=== PATIENT | female | born 1970 | race Caucasian/White ===

== ENCOUNTER 2025-08-22 05:00 | Observation (INO) | payer MEDICAID, SELFPAY ==
[2025-08-22] VITALS (22 sets, daily range): BP systolic 92–147; BP diastolic 49–98; PULSE 52–167; RESP 13–99; TEMP 36.3–36.8; O2SAT 94–99; BMI 41.5
--- NOTE | 2025-08-22 05:10 | EKG_ITS ---
[facility] Test Date: 2025-08-22 Pat Name: JENNIFER CHIN Department: Room: - Gender: Female Magnetic Locater: : 1970 Requested By: ED Temporary Provider Order Number: [id number] Reading MD: ED Temporary Provider Measurements Intervals [place] Rate: 67 P: 43 [place]: 139 QRS: -20 QRSD: 89 T: 29 QT: 373 QTc: 396 Interpretive Statements SINUS RHYTHM LOW QRS VOLTAGE IN PRECORDIAL LEADS [QRS DEFLECTION < 1.0 mV IN CHEST LEADS] Compared to ECG 11/03/2022 04:03:10 Low QRS voltage now present Myocardial infarct finding no longer present /store/S0/[id number]/ecg/[id number].pdf
--- NOTE | 2025-08-22 05:22 | PD.EDRME ---
Rapid Medical Screening Exam RME Arrival date/time: 08/22/25 05:00 Chief Complaint: Arrhythmia/Palpitations Vital signs: Vital Signs Temperature 98.3 F 08/22/25 05:03 Pulse Rate 121 H 08/22/25 05:03 Respiratory Rate 19 08/22/25 05:03 Blood Pressure 147/85 H 08/22/25 05:03 Pulse Oximetry (%) 98 08/22/25 05:03 Oxygen Delivery Method Room Air 08/22/25 05:03 RME Narrative: 55yo female with a history of intermittent palpitations and underlying CAD s/p [place] with [address], on Plavix and Aspirin presenting with sudden onset palpitations at 0330. No chest pain. Reports mild lightheadedness, but no syncope. Exam: Rapid irregular heart rhythm without signs of CHF Clinical Impression: new onset aFib RVR
--- NOTE | 2025-08-22 05:26 | PC.NURSE ---
MARCO ANTONIO AT BEDSIDE
--- NOTE | 2025-08-22 05:32 | XR_ITS ---
EXAMINATION: AP chest single view TECHNIQUE: AP portable upright chest single view Date and time: August 22, 2025, 0600 hours, comparison November 19, 2021 INDICATIONS: Cardiac palpitations today. FINDINGS: The film is rotated LPO Mild enlargement left ventricle Mild to moderate vascular congestion No lobar pneumonia Moderate osteopenia IMPRESSION: Mild enlargement left ventricle Mild to moderate vascular congestion
[2025-08-22] MEDS: DILTIAZEM INJ 5 MG/ML VIAL 5 ML 10 MG IV ×2 (05:36→05:51)
--- NOTE | 2025-08-22 05:43 | PC.NURSE ---
PER PROVIDER TO GIVE FIRST DOSE OF 10MG OF DILTIAZEM TO MET GOAL OF 110BPM OR LESS/ IF HEART RATE DOES NOT DECREASE GIVE A SECOND DOSE OF DILTIAZEM 10MG IVP 15 MIN APART
[2025-08-22 05:53] LABS: Collection Type, Urine Clean Catch; WBC,Urine 0 /hpf (0-5)
[2025-08-22 05:55] LABS: Basophils # (Auto) 0.0 Thou/mm3 (0.0-0.2); Basophils % (Auto) 1 % (0-2.5); Eosinophils # (Auto) 0.4 Thou/mm3 (0.0-0.5); Eosinophils % (Auto) 6 % (0-10); Hematocrit 46.4 % (36.0-46.0); Hemoglobin 15.4 g/dL (12.0-16.0); Immature Granulocytes Auto 0.01 Thou/mm3 (0.00-0.00); Lymphocytes # (Auto) 1.9 Thou/mm3 (1.0-4.8); Lymphocytes % (Auto) 32 % (10-50); Mean Corpuscular HGB Conc 33.2 g/dl (31.0-37.0); Mean Corpuscular Hemoglobin 29.8 pg (25.0-35.0); Mean Corpuscular Volume 90 fL (80-100); Monocytes # (Auto) 0.4 Thou/mm3 (0.0-0.8); Monocytes % (Auto) 7 % (0-12); Neutrophils # (Auto) 3.3 Thou/mm3 (1.8-7.7); Neutrophils % (Auto) 54 % (37-80); Nucleated Red Blood Cell # 0.00 Thou/mm3 (0.00-0.00); Nucleated Red Blood Cell % 0 /100 WBC (0); Platelet Count 230 Thou/mm3 (140-440); RDW Standard Deviation 56.8 fL (36.4-46.3); Red Blood Count 5.17 Miln/mm3 (4.00-5.20); White Blood Count 6.1 Thou/mm3 (3.6-11.0)
[2025-08-22 06:06] LABS: Bacteria,Urine Rare; Bilirubin,Urine Negative (Negative); Blood,Urine Negative (Negative); Clarity,Urine Clear (Clear/Hazy); Color,Urine Colorless (Lt Yel-Yel); Culture Indicated,Urine Not Indicated; Glucose, Urine 3+ (Negative); Ketones,Urine Negative (Negative); Leukocyte Esterase,Urine Negative (Negative); Nitrite,Urine Negative (Negative); PH,Urine 7.0 (5.0-7.0); Protein,Urine Negative (Neg - Trace); RBC,Urine < 1 /hpf (0-3); Specific Gravity,Urine 1.004 (1.001-1.035); Squamous Epithelial Cell,Urine < 1 /hpf (0-5); Urobilinogen,Urine Negative mg/dL (0.0-1.0)
[2025-08-22 06:08] LABS: Amphetamine/Methamp Scrn,U Negative (Negative); Barbiturate Screen,Urine Negative (Negative); Benzodiazepines Screen,Urine Negative (Negative); Benzoylecgonine Screen, Ur Negative (Negative); Fentanyl Screen,Urine Negative (Negative); Opiate Screen,Urine Negative (Negative); THC Screen,Urine Negative (Negative)
[2025-08-22 06:17] LABS: INR 1.0 (0.9-1.3); Partial Thromboplastin Time 25.8 Seconds (22.0-36.0); Prothrombin Time 10.4 Seconds (9.0-12.2)
[2025-08-22 06:22] LABS: Alanine Aminotransferase 13 U/L (10-49); Albumin, Serum 4.9 gm/dL (3.5-5.0); Albumin/Globulin Ratio 2.0 (1.2-2.2); Alkaline Phosphatase 111 U/L (46-116); Anion Gap 9 (7-16); Aspartate Amino Transferase 20 U/L (0-34); BUN/Creatinine Ratio 11 Ratio (12-20); Bilirubin,Total 0.5 mg/dL (0.3-1.2); Blood Urea Nitrogen 11 mg/dL (9-23); Calcium 10.1 mg/dL (8.3-10.6); Calcium (Corrected) 10.1 mg/dL (8.5-10.1); Carbon Dioxide 25.8 mMol/L (20.0-31.0); Chloride 106 mMol/L (98-107); Creatinine (Component) 1.0 mg/dL (0.6-1.3); Estimated Creatinine Clearance 88.2 mL/min (>60); Globulin 2.4 gm/dL (2.3-3.5); Glucose 140 mg/dL (74-106); LDH (Lactate Dehydrogenase) 236 U/L (120-246); Magnesium 1.8 mg/dL (1.6-2.6); Osmolality,Calculated 282 (275-295); Potassium 3.4 mMol/L (3.4-5.1); Sodium 141 mMol/L (136-145); Total Protein 7.3 gm/dL (5.7-8.2); Troponin I 0.028 ng/mL (0.0-0.045); eGFR > 60 See Note
[2025-08-22 06:26] LABS: B-Type Natriuretic Peptide < 20 pg/mL (0-100)
--- NOTE | 2025-08-22 06:33 | EDNOTE_ITS ---
<Statement entered by Vijaya Price MD - 08/22/25 16:25> As co-signing physician, I was present and available for consult prn. I concur with the plan and care as documented by the midlevel provider. ED Arrhythmia Palp. RME/HPI General Chief Complaint: Arrhythmia/Palpitations Stated Complaint: PALPITATIONS Time Seen by Provider: 08/22/25 06:46 Arrival date/time: 08/22/25 05:00 RME / HPI RME / HPI narrative: 55yo female with a history of intermittent palpitations and underlying CAD s/p [place] with [address], on Plavix and Aspirin presenting with sudden onset palpitations at 0330. No chest pain. Reports mild lightheadedness, but no syncope. Dr. Price?s Main ED Evaluation: 55yo female with a history of DM, HTN, CAD, widowmaker heart attack 03/23/2022 s/p 3 cardiac stents, on Plavix and Aspirin BIBA from home presents to the ED for a chief complaint of palpitations x 0330. Patient denies any chest pain, shortness of breath, or any other associated symptoms. Patient has been compliant with her medications. Cross Country/Track And Field Coach is Dr. Juarez. Related Data Home Medications ?Medication ?Instructions ?Recorded ?Confirmed Hydrocodone Bit/Acetaminophen 1 tab PO [id number] PRN TANVIR N ##0 10/09/13 08/22/25 ([place] 10-325 Tablet) lisinopril 10 mg tablet 10 mg PO QAM High Blood Pres sure 10/09/13 08/22/25 ##0 aspirin 81 mg chewable tablet 1 tab PO DAILY 08/22/25 08/22/25 atorvastatin 80 mg tablet 80 mg PO HS 08/22/25 5 carvedilol 6.25 mg tablet 6.25 mg PO .DAILY 08/22/25 1 10/22/24 cholecalciferol (vitamin D3) 125 5,000 unit PO DAILY 1 10/22/24 08/22/25 mcg (5,000 unit) capsule clopidogrel 75 mg tablet 75 mg PO DAILY 08/22/2508/12 empagliflozin 10 mg tablet 10 mg PO QDAY 08/22/2508/12 (Jardiance) hydrochlorothiazide 50 mg tablet 50 mg PO DAILY 08/22/25 omeprazole 20 mg tablet,delayed 20 mg PO DAILY 5 08/22/25 release Previous Rx's ?Medication ?Instructions ?Recorded diphenhydramine HCl 25 mg tablet 25 mg PO [id number] PRN ITCHING #60 10/09/13 (Benadryl Allergy) tabs Allergies Allergy/AdvReac Type Severity Reaction Status Date / Time amoxicillin Allergy Severe vomiting Verified 08/22/25 05:09 and swelling codeine Allergy Intermediate VOMITING Verified 08/22/25 05:09 Penicillins Allergy Verified 08/22/25 05:09 Review of Systems Review of Systems Systems Reviewed: All systems reviewed, normal except as documented Past Medical History Past Medical History NEUROLOGIC: Negative Neurological Disorders CARDIAC: Positive Myocardial Infarction (2021) and Hypertension; Negative Cardiac Disorders or Congestive Heart Failure RESPIRATORY: Negative Chronic Obstructive Pulmonary Disease (COPD) GASTROINTESTINAL: Negative Gastrointestinal Disorders GENITOURINARY: Negative Genitourinary Disorders or Renal Disease MUSCULOSKELETAL: Negative Musculoskeletal Disorders ENDOCRINE: Positive Diabetes Mellitus Type 2; Negative Endocrine Disorders or Diabetes Mellitus Type 1 OTHER HISTORY: Negative Hospitalization Surgical History SURGICAL: Positive Cardiac Surgery, Coronary Stent and Tubal Ligation Social History SMOKING STATUS: Light (< 1 pack/day) ED Exam Narrative Physical exam: GENERAL APPEARANCE: alert and oriented x 4, well-developed, well-nourished, no acute distress VITALS: All vitals were reviewed and the pulse ox is 94% on room air, which is normal according to my interpretation. HEENT: Normocephalic, atraumatic; pupils equal, round, reactive to light; EOMI; mucous membranes pink, moist; oropharynx clear NECK: Supple LUNGS: CTABL; no wheezes, no rales, no rhonchi HEART: Tachycardic, irregularly irregular rhythm; normal S1, S2; no murmurs ABDOMEN: non distended; normal BS; soft, no tenderness, no guarding, no rebound; no masses, no organomegaly, no hernia BACK: no CVA tenderness EXTREMITIES: atraumatic; no edema NEUROLOGIC: awake; alert and oriented x4; cranial nerves II-XII grossly intact; no focal sensory or motor deficits PSYCHIATRIC: appropriate mood and affect SKIN: warm, dry, normal color; no rashes Course Course Course Narrative: CXR is ordered for determining the etiology of palpitations. Quality Measures none Orders Category Date Time Status EKG (ED ONLY) *Do not use* NOW Care 08/22/25 05:10 Completed Insert IV NOW Care 08/22/25 05:22 Active EKG (ED Only) Stat Exams 08/22/25 05:10 Ordered XR chest 1V portable Stat Exams 08/22/25 05:32 Taken B-Type Natriuretic Peptide Stat Lab 08/22/25 05:30 Completed CBC Stat Lab 08/22/25 05:30 Completed Comprehensive Metabolic Panel Stat Lab 08/22/25 05:30 Completed Drug Screen,Urine Stat Lab 08/22/25 05:29 Completed LDH (Lactate Dehydrogenase) Stat Lab 08/22/25 05:30 Completed Magnesium Stat Lab 08/22/25 05:30 Completed Partial Thromboplastin Time Stat Lab 08/22/25 05:30 Completed Prothrombin Time with INR Stat Lab 08/22/25 05:30 Completed Troponin I Stat Lab 08/22/25 05:30 Completed Urinalysis, C/S if Indicated Stat Lab 08/22/25 05:29 Completed Diltiazem Inj [Cardizem Inj] Med 08/22/25 05:33 Discontinued 10 mg IV X1 ONE Diltiazem Inj [Cardizem Inj] Med 08/22/25 05:36 Discontinued 10 mg IV X1 ONE Reevaluation(s) Reevaluation #1: Patient continues to be in aFib with a rate between the 130s-140s. Additional dose of labetalol ordered. Time: 08:11 Reevaluation #2: Patient received Diltiazem 10mg IVP x2 by previous physician. Rate was not c ontrolled and given an additional Diltizem 15mg IVP, Diltiazem gtt, Labetolol, 10mg IVP, IVF, Labetalol 20mg IVP. Rate at this time 150s. Will consult with cardiology. Time: 10:48 Reevaluation #3: Heart rate improved, now 65 on telemetry. Time: 11:10 Vital Signs Vital signs: Vital Signs Temperature 98.3 F 08/22/25 05:03 Pulse Rate 121 H 08/22/25 05:03 Respiratory Rate 19 08/22/25 05:03 Blood Pressure 147/85 H 08/22/25 05:03 Pulse Oximetry (%) 98 08/22/25 05:03 Oxygen Delivery Method Room Air 08/22/25 05:03 Arrhythmia/Palpitations MDM Narrative MDM Narrative:: Scribe Attestation: 08/22/25 - Claribel Alfonso am scribing for and in the presence of Dr. Price. Kaden, Awilda Jimenez, aisha scribing for and in the presence of Dr. Price. Patient data External records reviewed:: [facility] previous records (Per chart review, patient was seen here on 11/03/22 for noncardiac chest pain. No documented history of atrial fibrillation. EKG on 10/2022 was sinus tachycardia. ) and EMS form Clinical information provided by:: patient Social determinants that could affect healthcare access:: none Patient has the following chronic illnesses:: DM, HTN, CAD s/p [place] with 2 stents placed How is presenting disease/condition affected by chronic disease/condition?: uneffected by Evaluation data The following diagnostics were reviewed and interpreted by me:: lab results, radiology exam(s) and EKG tracing(s) Lab and/or radiology exams considered but not ordered:: none Interpretation Summary: EKG done at 0521, aFib RVR, rate of 169, low voltage throughout, Q wave in V1 and V2, poor R wave progression, according to my interpretation. Ordering Physician: Trev Maxwell DO Date of Service: 08/22/25 Procedure(s): XR chest 1V portable Accession Number(s): [id number] cc: Phillip Gonzalez; Trev Maxwell DO; John Herman MD~ EXAMINATION: AP chest single view TECHNIQUE: AP portable upright chest single view Date and time: August 22, 2025, 0600 hours, comparison November 19, 2021 INDICATIONS: Cardiac palpitations today. FINDINGS: The film is rotated LPO Mild enlargement left ventricle Mild to moderate vascular congestion No lobar pneumonia Moderate osteopenia IMPRESSION: Mild enlargement left ventricle Mild to moderate vascular congestion Dictated By: John Herman MD Signed By: <Electronically signed by John Herman MD in OV> 08/22/25 0808 Medications / Prescriptions Medications or Prescriptions considered but not ordered:: none Medication administrations:: Medication Administration History Discontinued Medications Diltiazem HCl (Diltiazem Inj 5 Mg/Ml Vial 5 Ml) 10 mg IV X1 ONE Stop: 08/22/25 05:34 Last Admin: 08/22/25 05:36 Dose: 10 mg Documented By: PHILL Diltiazem HCl (Diltiazem Inj 5 Mg/Ml Vial 5 Ml) 10 mg IV X1 ONE Stop: 08/22/25 05:37 Last Admin: 08/22/25 05:51 Dose: 10 mg Documented By: PHILL see above Consultations Consultation(s) initiated? (list below): Yes Consultation #1 (Physician, Specialty, Details): I spoke with economic specialist Dr. Saldaña. Discussed patients PMHx, HPI, ED course, exam findings, labs results. He agrees to consult. Time: 10:52 Consultation #2 (Physician, Specialty, Details): I spoke with hospitalist team C. Discussed patients PMHx, HPI, ED course, exam findings, labs, and radiology results. The hospitalist agree to accept the patient for admission. Time: 11:00 Diagnosis Differential diagnosis arrhythmia/palpitations: palpitations, anxiety, sinus tachycardia, artial fibrillation, ventricular premature beats and supraventricular tachycardia Most likely diagnosis given after review of the tests above:: New onset atrial fibrillation with RVR Admission Indicated Admission indicated?: indicated Admission Request Was there a request for admission?: Yes Admission Attestation Admission request attestation: Discussed case with [] from Hospitalist service regarding admission. Discussed patients ED course, exam findings, labs, and radiology results. The Hospitalist [agrees,declines] to accept the patient for admission. Disposition Plan Disposition Plan: Admit Critical Care Time Critical Care Time Critical Care Time: Yes Total Critical Care Time (min.): 35 Attestation: The high probability of sudden, clinically significant deterioration in the patient's condition required the highest level of my preparedness to intervene urgently. The services I provided to this patient were to treat and/or prevent clinically significant deterioration. Services included the following: chart data review, reviewing nursing notes and/or old charts, documentation time, animal nutrition consultant collaboration regarding findings and treatment options, medication orders and management, direct patient care, vital sign assessments and ordering, interpreting and reviewing diagnostic studies and lab tests. Aggregate critical care time includes only time during which I was engaged in work directly related to the patient's care, as described above, whether at bedside or elsewhere in the Emergency Department. It did not include time spent performing other reported procedures or the services of residents, students, nurses or physician assistants. Discharge Plan Plan Patient Disposition: Admit Acute Care w/in Hospital Prescriptions/Referrals Prescriptions/Med Rec: No Action lisinopril 10 MG tablet 10 mg PO QAM Qty: 0 Hydrocodone Bit/Acetaminophen ([place] 10-325 Tablet) 1 TAB tablet 1 tab PO [id number] PRN (Reason: PAIN) Qty: 0 diphenhydramine HCl [Benadryl Allergy] 25 MG tablet 25 mg PO [id number] PRN (Reason: ITCHING) Qty: 60 0RF carvedilol 6.25 mg tablet 6.25 mg PO .DAILY clopidogrel 75 mg tablet 75 mg PO DAILY hydrochlorothiazide 50 mg tablet 50 mg PO DAILY Patient Comments: TAKE 1 TABLET BY MOUTH EVERY DAY IN THE MORNING aspirin 81 mg tablet,chewable 1 tab PO DAILY Patient Comments: CHEW AND SWALLOW 1 TABLET BY MOUTH 1 TIME A DAY cholecalciferol (vitamin D3) 125 mcg (5,000 unit) capsule 5,000 unit PO DAILY Patient Comments: TAKE 1 CAPSULE BY MOUTH DAILY Jardiance 10 mg tablet 10 mg PO QDAY atorvastatin 80 mg tablet 80 mg PO HS Patient Comments: TAKE 1 TABLET BY MOUTH AT BEDTIME omeprazole 20 mg tablet,delayed release (DR/EC) 20 mg PO DAILY Patient Comments: TAKE 1 TABLET BY MOUTH DAILY Referrals: Phillip Gonzalez FNP [Primary Care Provider] - In 1 week Problem List Clinical Impression: New onset a-fib, Atrial fibrillation with RVR Patient/Caregiver Discharge Instructions Print Language: Thai Stand Alone Forms: Kimberlyn Award Info., Patient Portal Info Letter
[2025-08-22] MEDS: DILTIAZEM INJ 5 MG/ML VIAL 5 ML 15 MG IV (06:57)
[2025-08-22] MEDS: DILTIAZEM in D5W 125 MG 125 MG/125 ML BAG IV (06:58)
[2025-08-22] MEDS: LABETALOL INJ 5 MG/ML VIAL 20 ML 10 MG IVP (07:24)
[2025-08-22] MEDS: SODIUM CHLORIDE 0.9% 1000 ML 1,000 ML 999 ML IV ×2 (07:27→11:23)
--- NOTE | 2025-08-22 07:28 | PC.NURSE ---
PER DR. KING PATIENT TO STOP CARDIZEM DRIP AND GIVE LABETOLOL IV PUSH.
[2025-08-22] MEDS: LABETALOL INJ 5 MG/ML VIAL 20 ML 20 MG IVP (08:20)
--- NOTE | 2025-08-22 09:32 | ECHO_ITS ---
Patient Info Name: Pamella Lopez Age: 55 years : 1970 Gender: Female Ht: 173 cm Wt: 124 kg BSA: 2.50 m2 BP: 105 / 77 mmHg HR: 136 bpm Heart Rhythm: Atrial Fibrillation Exam Date: 08/22/2025 10:31 AM Admit Date: 08/22/2025 Site: [facility] Room Number: ED Patient Status: E Technical Quality: Poor Exam Type: CA echo doppler complete Reason for Poor Study: body habitus [facility] Counselor: Jes Dsouza Ordering Physician: Vijaya Price Study Info Indications new onset afib - Primary Location: SERX Left Ventricular Outflow Tract Name Value Normal LVOT 2D LVOT Diameter 1.9 cm LVOT Doppler LVOT Peak Velocity 76 cm/s LVOT Mean Gradient 1 mmHg LVOT VTI 15 cm LVOT VTI/AV VTI Ratio 0.6 LVOT Stroke Volume 41 ml Pulmonic Valve Name Value Normal PV Doppler PV Peak Velocity 93 cm/s Mitral Valve Name Value Normal MV Doppler MV Decel Woodson 548 cm/s2 MV PHT 55 ms MV Area (PHT) 4.0 cm2 4.0-5.0 MV Diastolic Function MV E Peak Velocity 104 cm/s Tricuspid Valve Name Value Normal TV Regurgitation Doppler TR Peak Velocity 272 cm/s Estimated PAP/RSVP RA Pressure 8 mmHg <=5 PA Systolic Pressure 38 mmHg <36 RV Systolic Pressure 38 mmHg <36 Aortic Valve Name Value Normal AV 2D/MM AV Cusp Sep (MM) 1.5 cm AV Doppler AV Peak Velocity 132 cm/s AV Mean Gradient 4 mmHg AV VTI 26 cm AV Area (Cont Eq VTI) 1.6 cm2 >=3.0 AV Area (Cont Eq Jeffry) 1.6 cm2 AV DI (Jeffry) 0.58 AV Regurgitation 2D LVOT Area 2.8 cm2 Ventricles Name Value Normal LV Dimensions 2D/MM IVS Diastolic Thickness (2D) 0.9 cm 0.6-0.9 LVID Diastole (2D) 4.3 cm 3.8-5.2 LVIW Diastolic Thickness (2D) 0.8 cm 0.6-0.9 LVID Systole (2D) 3.0 cm 2.2-3.5 LVOT Diameter 1.9 cm LV Mass (2D Cubed) 114.16 g 67.00-162.00 LV Mass Index (2D Cubed) 46 g/m2 43-95 Relative Wall Thickness (2D) 0.37 <=0.42 IVS/LVIW Diastolic Thickness (2D) 1.13 0.00-1.50 LV Fractional Shortening/Ejection Fraction 2D/MM LV Fractional Shortening (2D) 30 % 27-45 LV EF (2D Teichholz) 58 % LV Diastolic Volume (4C MOD) 85 ml LV EF (4C MOD) 44 % LV Diastolic Volume (2C MOD) 39 ml LV EF (2C MOD) 18 % LV Diastolic Volume (BP MOD) 62 ml 46-106 LV Diastolic Volume Index (BP MOD) 25 ml/m2 29-61 LV Systolic Volume (BP MOD) 40 ml 14-42 LV Systolic Volume Index (BP MOD) 16 ml/m2 8-24 LV EF (BP MOD) 36 % 54-74 LV Diastolic Length (4C) 6.1 cm LV Systolic Length (4C) 5.1 cm LV Stroke Volume (4C MOD) 38 ml Atria Name Value Normal LA Dimensions LA Volume (4C A-L) 78 ml Left Ventricle Left ventricular chamber dimension is normal. Left ventricular systolic function is normal with visually estimated ejection fraction of 55-60%. There is normal geometry noted in the left ventricle. Left ventricular segmental wall motion is normal. There is indeterminate diastolic function in the left ventricle. Right Ventricle Right ventricular chamber dimension is normal. Right ventricular systolic function is normal. Left Atrium Left atrial chamber dimension is normal. Right Atrium Right atrial chamber dimension is normal. Aortic Valve The aortic valve is trileaflet. There is no aortic valve sclerosis. There is no aortic valve stenosis with a peak velocity of 132 cm/s, mean gradient of 4 mmHg, and aortic valve area of 1.6 cm2. There is no aortic valve regurgitation. Pulmonic Valve The pulmonic valve is normal. There is no pulmonic valve stenosis. There is trace pulmonic regurgitation. Mitral Valve The mitral valve has normal leaflets. There is no mitral valve stenosis. There is mild mitral valve regurgitation. Tricuspid Valve The tricuspid valve leaflets are normal. There is no tricuspid valve stenosis. There is mild tricuspid valve regurgitation. Pulmonary hypertension, estimated pulmonary arterial systolic pressure is 38 mmHg and systemic blood pressure of 105 mmHg in systole. Pericardium/Pleural The pericardium appears normal. There is no pericardial effusion. No pleural effusion visualized. Inferior Vena Cava Not well visualized inferior vena cava with >50% collapse upon inspiration consistent with normal right atrial pressure, 8 mmHg. Aorta The aortic measurements are indexed to age and body surface area. The aortic root at the sinus of Valsalva is not well visualized. The prox ascending aorta is not well visualized. Summary 1. Left ventricle size is normal and systolic function is normal. Estimated ejection fraction is 55-60%. There is indeterminate diastolic function. 2. Right ventricle chamber size is normal and systolic function is normal. Estimated RVSP is 38 mmHg. Mild HTN. 3. There is mild mitral valve regurgitation. 4. There is mild tricuspid valve regurgitation. 5. IVC not well visualized and no pericardial effusion. Report Signatures Finalized by Luke Saldaña on 08/22/2025 06:58 PM
--- NOTE | 2025-08-22 12:33 | EKG_ITS ---
[facility] Test Date: 2025-08-22 Pat Name: JENNIFER CHIN Department: Room: - Gender: Female Glue Maker Bone: : 1970 Requested By: Michael Munguia Order Number: [id number] Reading MD: Michael Munguia Measurements Intervals [place] Rate: 169 P: [place]: QRS: 22 QRSD: 84 T: -6 QT: 259 QTc: 435 Interpretive Statements ATRIAL FIBRILLATION WITH RAPID VENTRICULAR RESPONSE MODERATE ST DEPRESSION [0.05+ mV ST DEPRESSION] CRITICAL TEST RESULT Compared to ECG 11/03/2022 04:03:10 ST (T wave) deviation now present Sinus rhythm no longer present Myocardial infarct finding no longer present /store/S0/[id number]/ecg/[id number]
[2025-08-22] MEDS: POTASSIUM CHLORIDE 10% 20 MEQ/15 ML UDC 40 MEQ PO (12:55)
[2025-08-22] MEDS: ASPIRIN 81 MG CHEW PO (12:55)
[2025-08-22] MEDS: Magnesium Sulfate 2 GM Ivpb 2 GM/50 ML BAG IV ×2 (12:55→14:49)
--- NOTE | 2025-08-22 13:22 | ESHP_ITS ---
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 She describes the sensation as an uncomfortable fluttering in her chest associated with mild lightheadedness, but denies syncope, chest pain, dyspnea, or diaphoresis. She has experienced intermittent fluttering episodes since February 2025, occasionally associated with lightheadedness, for which her kitchen designer Dr. Juarez ordered a stress test (scheduled for 09/28/2025) delayed due to insurance problems. No recent increase in caffeine or alcohol intake. She denies fevers, chills, cough, or infectious symptoms. No recent medication changes, and she reports adherence to her medication regimen. In the ED, patient was noted to be in atrial fibrillation with RVR, which spontaneously converted to normal sinus rhythm (rate 67 bpm, QTc 396 ms). Troponins and BNP were negative, and electrolytes revealed mild hypokalemia (K 3.4), which was repleted. Echocardiogram pending. CXR showed mild left ventricular enlargement and [id number] vascular congestion. Review of Systems: Negative unless stated above Past Medical History: * Coronary artery disease s/p widowmaker [place] (03/2022) with 3 stents * Hypertension * Type 2 diabetes mellitus * Hyperlipidemia Past Surgical History: * Tubal ligation * Norplant removal Allergies: * Penicillin * Codeine ? itching Home Medications: * Aspirin 81 mg daily * Clopidogrel 75 mg daily * Atorvastatin 80 mg daily * Carvedilol 6.25 mg daily -> to be changed to metoprolol succinate 50 mg daily * Lisinopril 20 mg daily * Hydrochlorothiazide 50 mg daily -> to be reduced to 25 mg daily * Jardiance 10 mg daily * Ozempic 0.5 mg weekly * Omeprazole 20 mg daily Social History: * Lives with two sons and grandchildren. * Smokes cigarettes daily. Denies alcohol or illicit drug use. * Independent in ADLs. Family History * Mother with diabetes. No known premature cardiac deaths. Exam Vital Signs Temp Pulse Resp BP Pulse Ox O2 Del Method 98.0 F 65 18 92/56 L 99 Room Air 08/22/25 08:42 08/22/25 12:42 08/22/25 12:42 08/22/25 12:42 08/22/25 12:42 08/22/25 12:42 Narrative Exam General: Alert, oriented ?4, no acute distress. HEENT: PERRLA, mucous membranes moist. Neck: Supple, no JVD. Cardiac: Regular rate and rhythm, normal S1/S2, no murmurs. Lungs: Clear to auscultation bilaterally. Abdomen: Soft, non-tender, normoactive bowel sounds. Extremities: No edema. Neuro: No focal deficits. Skin: Warm, dry, intact. Results: Labs 08/23/25 04:02 08/23/25 04:02 Labs: Short CBC 08/22/25 Range/Units 05:30 WBC 6.1 (3.6-11.0) Thou/mm3 Hgb 15.4 (12.0-16.0) g/dL Hct 46.4 H (36.0-46.0) % Plt Count 230 (140-440) Thou/mm3 BMP 08/22/25 05:30 Sodium 141 Potassium 3.4 Chloride 106 Carbon Dioxide 25.8 BUN 11 Creatinine 1.0 Glucose 140 H Calcium 10.1 Cardiac Enzymes 08/22/25 Range/Units 05:30 Troponin I 0.028 (0.0-0.045) ng/mL Liver Function 08/22/25 Range/Units 05:30 Total Bilirubin 0.5 (0.3-1.2) mg/dL AST 20 (0-34) U/L ALT 13 (10-49) U/L Alkaline Phosphatase 111 (46-116) U/L Albumin 4.9 (3.5-5.0) gm/dL Urine 08/22/25 Range/Units 05:29 Urine Color Colorless A (Lt Yel-Yel) Urine Clarity Clear (Clear/Hazy) Urine pH 7.0 (5.0-7.0) Ur Specific Bynum 1.004 (1.001-1.035) Urine Protein Negative (Neg - Trace) Urine Glucose (UA) 3+ A (Negative) Quality Measures Quality Measures VTE prophylaxis Medications Home Medications and Allergies Home Medications ?Medication ?Instructions ?Recorded ?Confirmed ?Type Hydrocodone Bit/Acetaminophen 1 tab PO [id number] PRN TANVIR N ##0 10/09/13 08/22/25 History ([place] 10-325 Tablet) lisinopril 10 mg tablet 10 mg PO QAM High Blood Pres sure 10/09/13 08/22/25 History ##0 aspirin 81 mg chewable tablet 1 tab PO DAILY 08/22/25 08/22/25 History atorvastatin 80 mg tablet 80 mg PO HS 08/22/25 5 History carvedilol 6.25 mg tablet 6.25 mg PO .DAILY 08/22/25 1 10/22/24 History cholecalciferol (vitamin D3) 125 5,000 unit PO DAILY 1 10/22/24 08/22/25 History mcg (5,000 unit) capsule clopidogrel 75 mg tablet 75 mg PO DAILY 08/22/2508/12 History empagliflozin 10 mg tablet 10 mg PO QDAY 08/22/2508/12 History (Jardiance) hydrochlorothiazide 50 mg tablet 50 mg PO DAILY 08/22/25 History omeprazole 20 mg tablet,delayed 20 mg PO DAILY 5 08/22/25 History release Allergies Allergy/AdvReac Type Severity Reaction Status Date / Time amoxicillin Allergy Severe vomiting Verified 08/22/25 05:09 and swelling codeine Allergy Intermediate VOMITING Verified 08/22/25 05:09 Penicillins Allergy Verified 08/22/25 05:09 Visit Medications Acetaminophen (Acetaminophen 325 Mg Tablet) 650 mg PO Q6H PRN PRN Reason: Fever >100.4 or pain 1-6 Stop: 09/21/25 12:22 Aspirin (Aspirin 81 Mg Chew) 81 mg PO DAILY BLESSING Stop: 09/21/25 12:29 Last Admin: 08/22/25 12:55 Dose: 81 mg Atorvastatin Calcium (Atorvastatin Calcium 20 Mg Tablet) 80 mg PO HS BLESSING Stop: 09/21/25 20:59 Carvedilol (Carvedilol 3.125 Mg Tablet) 6.25 mg PO BID BLESSING Stop: 09/21/25 12:34 Last Admin: 08/22/25 12:48 Dose: Not Given Hydrochlorothiazide (Hydrochlorothiazide 12.5 Mg Capsule) 50 mg PO DAILY BLESSING Stop: 09/21/25 12:29 Last Admin: 08/22/25 12:48 Dose: Not Given Diltiazem/Sodium Chloride (Diltiazem In Ns 100 Mg) 100 mg in 100 mls @ 10 mls/hr IV .Q10H BLESSING On Hold: 08/22/25 11:03 Comment: RN CLARIFYING WITH PROVIDER Stop: 09/21/25 10:56 Last Admin: 08/22/25 11:11 Dose: Not Given Magnesium Sulfate (Magnesium Sulfate Ivpb) 2 gm in 50 mls @ 25 mls/hr IV X1 ONE Stop: 08/22/25 14:11 Last Admin: 08/22/25 12:55 Dose: 25 mls/hr Magnesium Sulfate (Magnesium Sulfate Ivpb) 2 gm in 50 mls @ 25 mls/hr IV X1 ONE Stop: 08/22/25 15:17 Lisinopril (Lisinopril 2.5 Mg Tablet) 10 mg PO QAM [facility] Stop: 09/21/25 12:29 Last Admin: 08/22/25 12:48 Dose: Not Given Ondansetron HCl (Ondansetron Inj 2 Mg/Ml Inj 2 Ml) 4 mg IVP Q6H PRN; Protocol PRN Reason: NAUSEA OR VOMITING Stop: 09/21/25 12:22 Pantoprazole Sodium (Pantoprazole 40 Mg Tablet) 40 mg PO QDAY [facility] Stop: 09/22/25 08:59 Discontinued Medications Diltiazem HCl (Diltiazem Inj 5 Mg/Ml Vial 5 Ml) 10 mg IV X1 ONE Stop: 08/22/25 05:34 Last Admin: 08/22/25 05:36 Dose: 10 mg Diltiazem HCl (Diltiazem Inj 5 Mg/Ml Vial 5 Ml) 10 mg IV X1 ONE Stop: 08/22/25 05:37 Last Admin: 08/22/25 05:51 Dose: 10 mg Diltiazem HCl (Diltiazem Inj 5 Mg/Ml Vial 5 Ml) 15 mg IV X1 ONE Stop: 08/22/25 06:34 Last Admin: 08/22/25 06:57 Dose: 15 mg Diltiazem HCl (Diltiazem In D5w 125 Mg) 125 mg in 125 mls @ 5 mls/hr IV .Q24H BLESSING; Protocol Stop: 09/21/25 06:33 Last Titration: 08/22/25 07:22 Dose: 0 mg/hr, 0 mls/hr Sodium Chloride (Ns) 1,000 mls @ 999 mls/hr IV .Q1H1M ONE Stop: 08/22/25 08:18 Last Infusion: 08/22/25 08:28 Dose: Infused Sodium Chloride (Ns) 1,000 mls @ 999 mls/hr IV .Q1H1M ONE Stop: 08/22/25 12:11 Last Infusion: 08/22/25 12:24 Dose: Infused Labetalol HCl (Labetalol Inj 5 Mg/Ml Vial 20 Ml) 10 mg IVP X1 ONE Stop: 08/22/25 07:20 Last Admin: 08/22/25 07:24 Dose: 10 mg Labetalol HCl (Labetalol Inj 5 Mg/Ml Vial 20 Ml) 20 mg IVP X1 ONE Stop: 08/22/25 08:16 Last Admin: 08/22/25 08:20 Dose: 20 mg Metoprolol Succinate (Metoprolol Succinate Xl 25 Mg Tabcr) 50 mg PO X1 ONE Stop: 08/22/25 13:19 Potassium Chloride (Potassium Chloride 10% 20 Meq/15 Ml Udc) 40 meq PO X1 ONE Stop: 08/22/25 12:12 Last Admin: 08/22/25 12:55 Dose: 40 meq Potassium Chloride (Potassium Chloride 20 Meq Tabcr) 40 meq PO X1 ONE Stop: 08/22/25 13:19 Assessment & Plan Plan 55-year-old female with history of CAD s/p [place] (2021, 3 stents), DM2, and HTN presenting with symptomatic paroxysmal atrial fibrillation, now reverted to sinus rhythm. CHADS-VASc = 4 (HTN + DM + CAD + Female). Stable and asymptomatic post-conversion. # Paroxysmal Atrial Fibrillation New onset; likely secondary to underlying structural heart disease and mild electrolyte imbalance (K 3.4 -> repleted). No ischemic changes or myocardial injury (troponin negative). Converted spontaneously to NSR (rate 67, QTc 396). Echocardiogram pending for LV function and LA size. No evidence of thyroid or metabolic trigger; infection unlikely (CBC, UA normal). CHADS-VASc = 4 -> high risk for stroke (anticoagulation indicated). HAS-BLED = 1 (HTN) -> low bleed risk. Plan: * Start Eliquis 5 mg PO BID * Switch carvedilol -> metoprolol succinate 50 mg daily (cardiology recommended) * Monitor on telemetry overnight for recurrence * Continue aspirin 81 mg * Cardiology consult (Dr. Saldaña) follow-up echo interpretation * Educate on recognizing recurrence of palpitations or dizziness # CAD s/p Widowmaker [place] (2021, 3 stents) Stable; no ischemic symptoms. Plan: * Continue aspirin 81 mg daily * Continue atorvastatin 80 mg daily * Continue lisinopril 10 mg daily * Decrease HCTZ to 25 mg daily per cardiology * Hold Jardiance while inpatient # Hypertension Currently well controlled. Plan: * Adjust regimen: metoprolol 50 mg daily + lisinopril 10 mg + HCTZ 25 mg * Monitor BP trends # Type 2 Diabetes Mellitus A1C 6.4% per patient report; stable on current therapy. Plan: * Hold while inpatient, Jardiance 10 mg daily and Ozempic 0.5 mg weekly * Check A1c in the a.m. as patient was not sure * Start sliding scale with ACHS checks * Monitor glucose while inpatient # Tobacco Use Disorder Ongoing daily use. Plan: * Start nicotine patch for smoking cessation * Provide counseling and outpatient cessation resources Health Maintenance Disposition: Admit to telemetry for monitoring Feeding: Carb consistent diet Thromboprophylaxis: Eliquis 5 mg BID GI prophylaxis: Protonix Code Status: Full code ----- Plan discussed with attending physician Dr. Micheline Conner MD PGY-1 Internal Medicine Attending Provider Attestation/Addendum I have examined the patient, reviewed labs and imaging findings, discussed the case with the resident(s), and reviewed entered orders. I agree with the plan of care as outlined in this note, with these additional summaries/recommendations: After examination of the patient and review of the clinical data, I feel that this patient needs admission to the hospital for further treatment and evaluation. Patient is a 55-year-old female with a medical history of coronary artery disease status post [place] and stent placement in 2021, diabetes mellitus type 2, primary hypertension, and dyslipidemia who presents to [facility] emergency department on 08/22/2025 with chief complaints of palpitations. EKG in the emergency room revealed atrial fibrillation with rapid ventricular response. Patient diagnosed with new onset atrial fibrillation. Unclear trigger at this time. Order mag, potassium, TSH, and echocardiogram. Elevated [id number] score and start Eliquis. In-house cardiology consulted, recommendations appreciated. Patient started on metoprolol succinate. Monitor on telemetry. Patient is obese and would benefit from outpatient sleep study. Continue home aspirin and atorvastatin for CAD. Continue home antihypertensives. Start insulin sliding scale with Accu-Cheks for diabetes mellitus type 2. Target blood sugar 140-180 while hospitalized. A1c 6.4%. Patient endorses tobacco use and nicotine patch as needed. Patient updated on plan and agreement. All questions answered to satisfaction. Please see residents note for additional details and management. Dr. Micheline MD
[2025-08-22] MEDS: METOPROLOL SUCCINATE XL 25 MG TABCR 50 MG PO (13:26)
[2025-08-22] MEDS: APIXABAN 2.5 MG TABLET 5 MG PO ×2 (14:48→20:04)
--- NOTE | 2025-08-22 17:46 | PD.RESCONSUL ---
HPI Data of Consult Requesting Physician: Michael Munguia MD Admitting Provider: Michael Munguia MD Attending Provider: Michael Munguia MD Primary Care Provider: TOYA March Consult Narrative Reason for consult: A Fib with RVR History of present illness: Pamella is a 55-year-old female with past medical history of hyperlipidemia, hypertension, diabetes mellitus, osteoarthritis of hip, spinal stenosis of lower lumbar area and neck, CAD maker AL status post 3 stents in March 2022 at [facility] by Dr. Louie?4 times resuscitation during the stent surgery presented to the ED with heart racing and pounding sensations starting 3:30 in the morning on 08/22 which resolved after she got initial dose of diltiazem. She endorses she having left shoulder dally pain on and off, shortness of breath, lightheadedness associated with this palpitations which got relieved after she had received dose of diltiazem in ED. She denies any prior history of palpitations or any episode of similar type of shoulder pain anytime in the past. She denies orthopnea, PND, recent infection, swelling in the legs, abdominal distention, decreased urine output, loss of consciousness. She has been following Dr. Juarez in [place] for her cardiology checkups. She was scheduled for stress test in the coming September. she usually walks around 30 minutes in a day without getting any chest pain, shortness of breath. She says she has been tracking blood pressure at home usually around 140s. ED course: On initial presentation her heart rate is around 121 which blood pressure around 147/85 and EKG at that time showing A-fib with RVR so ED doctor gave diltiazem and she is spontaneously converted into the sinus rhythm during my visit. EKG not showing any ST segment depressions, troponin negative, BNP normal so no signs of ischemia. Her potassium is 3.4 and magnesium is 1.8 during the initial labs. Past medical history: History of CAD? maker AL status post 3 stents in March 2022 followed by 4 times resuscitation during the surgery. Social history: She currently lives with her son and not working. She is currently smoking 2 to 4 cigarettes a day previously used to smoke heavily until she got AL in 2021, she denies any alcohol or illicit drug usage. Family history: Mother diabetic Allergic history: Penicillin and codeine Home medications. Aspirin 81 mg daily Clopidogrel 75 mg daily Atorvastatin 80 mg daily Carvedilol 6.25 mg daily Lisinopril 20 mg daily Hydrochlorothiazide 50 mg daily Jardiance 10 mg daily Ozempic 0.5 mg weekly Omeprazole 20 mg daily cc:: cc: Michael Munguia MD Exam Vital Signs Temp Pulse Resp BP Pulse Ox O2 Del Method 97.5 F 89 18 97/49 L 96 Room Air 08/22/25 16:00 08/22/25 16:00 08/22/25 16:00 08/22/25 16:00 08/22/25 16:00 08/22/25 16:00 Narrative Exam GENERAL: NAD, AAOx3 HEENT: Moist mucosa. Eyes open, symmetrical, & clear CARDIO:Regular rhythm Noted. No Murmurs. PULM: No noted coughing/dyspnea CTA B/L, no R/W/R GI: Abdomen soft, nondistended, non Tender SKIN/MSK/EXT: No wounds/rashes/amputations, no pain on palpation. Pedal pulses present B/L NEURO: AAOx3, no focal neuro deficits, able to move all 4 extremities Results Labs 08/22/25 05:30 08/22/25 05:30 Labs: Short CBC 08/22/25 Range/Units 05:30 WBC 6.1 (3.6-11.0) Thou/mm3 Hgb 15.4 (12.0-16.0) g/dL Hct 46.4 H (36.0-46.0) % Plt Count 230 (140-440) Thou/mm3 BMP 08/22/25 05:30 Sodium 141 Potassium 3.4 Chloride 106 Carbon Dioxide 25.8 BUN 11 Creatinine 1.0 Glucose 140 H Calcium 10.1 Cardiac Enzymes 08/22/25 Range/Units 05:30 Troponin I 0.028 (0.0-0.045) ng/mL Liver Function 08/22/25 Range/Units 05:30 Total Bilirubin 0.5 (0.3-1.2) mg/dL AST 20 (0-34) U/L ALT 13 (10-49) U/L Alkaline Phosphatase 111 (46-116) U/L Albumin 4.9 (3.5-5.0) gm/dL Urine 08/22/25 Range/Units 05:29 Urine Color Colorless A (Lt Yel-Yel) Urine Clarity Clear (Clear/Hazy) Urine pH 7.0 (5.0-7.0) Ur Specific [place] 1.004 (1.001-1.035) Urine Protein Negative (Neg - Trace) Urine Glucose (UA) 3+ A (Negative) Quality Measures Quality Measures VTE prophylaxis Medications Home Medications and Allergies Home Medications ?Medication ?Instructions ?Recorded ?Confirmed ?Type Hydrocodone Bit/Acetaminophen 1 tab PO O1ROSMO PRN PAIN ##0 10/09/13 08/22/25 History ([place] 10-325 Tablet) lisinopril 10 mg tablet 10 mg PO QAM High Blood Pressure 10/09/13 08/22/25 History ##0 aspirin 81 mg chewable tablet 1 tab PO DAILY 08/22/25 08/22/25 History atorvastatin 80 mg tablet 80 mg PO HS 08/22/25 08/22/25 History carvedilol 6.25 mg tablet 6.25 mg PO .DAILY 08/22/25 08/22/25 History cholecalciferol (vitamin D3) 125 5,000 unit PO DAILY 08/22/25 08/22/25 History mcg (5,000 unit) capsule clopidogrel 75 mg tablet 75 mg PO DAILY 08/22/25 08/22/25 History empagliflozin 10 mg tablet 10 mg PO QDAY 08/22/25 08/22/25 History (Jardiance) hydrochlorothiazide 50 mg tablet 50 mg PO DAILY 08/22/25 08/22/25 History omeprazole 20 mg tablet,delayed 20 mg PO DAILY 08/22/25 08/22/25 History release Allergies Allergy/AdvReac Type Severity Reaction Status Date / Time amoxicillin Allergy Severe vomiting Verified 08/22/25 05:09 and swelling codeine Allergy Intermediate VOMITING Verified 08/22/25 05:09 Penicillins Allergy Verified 08/22/25 05:09 Visit Medications Acetaminophen (Acetaminophen 325 Mg Tablet) 650 mg PO Q6H PRN PRN Reason: Fever >100.4 or pain 1-6 Stop: 09/21/25 12:22 Apixaban (Apixaban 2.5 Mg Tablet) 5 mg PO BID BLESSING Stop: 09/21/25 13:44 Last Admin: 08/22/25 14:48 Dose: 5 mg Aspirin (Aspirin 81 Mg Chew) 81 mg PO DAILY [facility] Stop: 09/21/25 12:29 Last Admin: 08/22/25 12:55 Dose: 81 mg Atorvastatin Calcium (Atorvastatin Calcium 20 Mg Tablet) 80 mg PO HS [facility] Stop: 09/21/25 20:59 Dextrose (Dextrose 50%-Water Inj 50 Ml Syringe) 25 ml IV Q15MIN PRN PRN Reason: BG 50-70 responsive npo pt Stop: 09/21/25 14:12 Dextrose (Dextrose 50%-Water Inj 50 Ml Syringe) 50 ml IV Q15MIN PRN PRN Reason: BG <50 OR BG <70 & pt unresponsive Stop: 09/21/25 14:12 Glucagon (Glucagon Inj 1 Mg Vial) 1 mg IM Q15MIN PRN PRN Reason: BG <70, and no IV access Hydrochlorothiazide (Hydrochlorothiazide 12.5 Mg Capsule) 25 mg PO DAILY [facility] Stop: 09/22/25 08:59 Insulin Human Lispro (Insulin Lispro (Admelog) 1 Unit/0.01 Ml Unit) 0 unit SC AC [facility]; Protocol Stop: 09/21/25 16:59 Last Admin: 08/22/25 17:08 Dose: Not Given Lisinopril (Lisinopril 2.5 Mg Tablet) 10 mg PO QAM [facility] Stop: 09/21/25 12:29 Last Admin: 08/22/25 12:48 Dose: Not Given Metoprolol Succinate (Metoprolol Succinate Xl 25 Mg Tabcr) 50 mg PO QDAY [facility] Stop: 09/22/25 08:59 Nicotine (Nicotine Patch 7 Mg/24 Hr Patch.Td24) 7 mg TOP QDAY [facility] Stop: 09/21/25 13:44 Last Admin: 08/22/25 14:49 Dose: Not Given Ondansetron HCl (Ondansetron Inj 2 Mg/Ml Inj 2 Ml) 4 mg IVP Q6H PRN; Protocol PRN Reason: NAUSEA OR VOMITING Stop: 09/21/25 12:22 Pantoprazole Sodium (Pantoprazole 40 Mg Tablet) 40 mg PO QDAY [facility] Stop: 09/22/25 08:59 Discontinued Medications Carvedilol (Carvedilol 3.125 Mg Tablet) 6.25 mg PO BID [facility] Stop: 09/21/25 12:34 Last Admin: 08/22/25 12:48 Dose: Not Given Diltiazem HCl (Diltiazem Inj 5 Mg/Ml Vial 5 Ml) 10 mg IV X1 ONE Stop: 08/22/25 05:34 Last Admin: 08/22/25 05:36 Dose: 10 mg Diltiazem HCl (Diltiazem Inj 5 Mg/Ml Vial 5 Ml) 10 mg IV X1 ONE Stop: 08/22/25 05:37 Last Admin: 08/22/25 05:51 Dose: 10 mg Diltiazem HCl (Diltiazem Inj 5 Mg/Ml Vial 5 Ml) 15 mg IV X1 ONE Stop: 08/22/25 06:34 Last Admin: 08/22/25 06:57 Dose: 15 mg Hydrochlorothiazide (Hydrochlorothiazide 12.5 Mg Capsule) 50 mg PO DAILY [facility] Stop: 09/21/25 12:29 Last Admin: 08/22/25 12:48 Dose: Not Given Diltiazem HCl (Diltiazem In D5w 125 Mg) 125 mg in 125 mls @ 5 mls/hr IV .Q24H [facility]; Protocol Stop: 09/21/25 06:33 Last Titration: 08/22/25 07:22 Dose: 0 mg/hr, 0 mls/hr Sodium Chloride (Ns) 1,000 mls @ 999 mls/hr IV .Q1H1M ONE Stop: 08/22/25 08:18 Last Infusion: 08/22/25 08:28 Dose: Infused Diltiazem/Sodium Chloride (Diltiazem In Ns 100 Mg) 100 mg in 100 mls @ 10 mls/hr IV .Q10H [facility]ING Stop: 09/21/25 10:56 Last Admin: 08/22/25 11:11 Dose: Not Given Sodium Chloride (Ns) 1,000 mls @ 999 mls/hr IV .Q1H1M ONE Stop: 08/22/25 12:11 Last Infusion: 08/22/25 12:24 Dose: Infused Magnesium Sulfate (Magnesium Sulfate Ivpb) 2 gm in 50 mls @ 25 mls/hr IV X1 ONE Stop: 08/22/25 14:11 Last Infusion: 08/22/25 14:55 Dose: Infused Magnesium Sulfate (Magnesium Sulfate Ivpb) 2 gm in 50 mls @ 25 mls/hr IV X1 ONE Stop: 08/22/25 16:29 Last Admin: 08/22/25 14:49 Dose: 25 mls/hr Labetalol HCl (Labetalol Inj 5 Mg/Ml Vial 20 Ml) 10 mg IVP X1 ONE Stop: 08/22/25 07:20 Last Admin: 08/22/25 07:24 Dose: 10 mg Labetalol HCl (Labetalol Inj 5 Mg/Ml Vial 20 Ml) 20 mg IVP X1 ONE Stop: 08/22/25 08:16 Last Admin: 08/22/25 08:20 Dose: 20 mg Metoprolol Succinate (Metoprolol Succinate Xl 25 Mg Tabcr) 50 mg PO X1 ONE Stop: 08/22/25 13:19 Last Admin: 08/22/25 13:26 Dose: 50 mg Potassium Chloride (Potassium Chloride 10% 20 Meq/15 Ml Udc) 40 meq PO X1 ONE Stop: 08/22/25 12:12 Last Admin: 08/22/25 12:55 Dose: 40 meq Potassium Chloride (Potassium Chloride 20 Meq Tabcr) 40 meq PO X1 ONE Stop: 08/22/25 13:19 Last Admin: 08/22/25 13:27 Dose: 40 meq Assessment & Plan Plan Pamella is a 55-year-old female with past medical history of hyperlipidemia, hypertension, diabetes mellitus, osteoarthritis of hip, spinal stenosis of lower lumbar area and neck, CAD maker AL status post 3 stents in March 2022 at [facility] by Dr. Louie?4 times resuscitation during the stent surgery presented to the ED with heart racing and pounding sensations. She was admitted for atrial fibrillation with rapid ventricular response. # New onset Paroxysmal atrial fibrillation with rapid ventricular response Complaining of heart racing and pounding sensations starting 3:30 in the morning and relieved after diltiazem pill and drip. Denies any chest pain, tightness, syncope. EKG showing A-fib with RVR heart rate around 160s, without any ST segment changes, troponin negative, BNP normal-not ischemic. EKG done after diltiazem drip and tele now shows normal sinus rhythm Management and plan: Discontinue carvedilol and starting on metoprolol XL 50 MG for optimal heart rate control and for her atrial fibrillation. Reducing her hydrochlorothiazide to 25 mg and monitor if any leg swelling develops. Can consider spironolactone if she develops any leg swelling. Goal potassium above 4 and magnesium about 2. Initial potassium is 3.4 and magnesium 1.8 ordered 40 mill equivalents of potassium and magnesium oxide 2g. ?Recommends comprehensive metabolic workup including cholesterol and TSH levels. ?Start on Eliquis 5 mg twice daily as there is no current intervention required from cardiology point of view. # Active smoking ?Counseled on importance of smoking cessation in view of her extensive cardiac history and impact on cardiovascular health. Patient agreed to quit smoking. ?Start on nicotine patch # Hypertension. Usual blood pressure at home is around 140s. ?Starting on metoprolol XL 50 mg and decreasing dose of hydrochlorothiazide to 25 mg ?Continue to monitor her blood pressure. # Hyperlipidemia. Currently taking atorvastatin 80 mg. Need a comprehensive profile of cholesterol panel. # CAD status post 3 stents Currently taking aspirin and Plavix ?Continue the current regimen # Diabetes mellitus 2 # Osteoarthritis # Spinal stenosis ?Manage per primary team Discussed this case with Dr. Piper Kaufman MD PGY1 Attending Provider Attestation/Addendum I have personally seen and examined the patient separately on the above date of service and discussed the plan of care with the resident. I reviewed the resident Dr. Tyler Kaufman consultation progress note and agree with the resident findings and plan in the note above and have also edited the documentation to reflect my findings and plan. A 55-year-old female with a past medical history of CAD status post PCI to the LAD with 3-4 stents in 2021 at [facility] with history of cardiac arrest during PCI, morbid obesity with BMI greater than 40, essential hypertension, type 2 diabetes mellitus, hyperlipidemia, osteoarthritis, spinal stenosis, hyperlipidemia, GERD, chronic active smoker with more than [id number] smoking history presented to the emergency department for further evaluation of palpitations or heart racing. Patient was found to be in atrial fibrillation with RVR with a heart rate of 150-160 bpm in the emergency department. EKG reviewed and shows A-fib with RVR with no acute ST-T changes history of ischemia. Labs showed potassium of 3.4 and magnesium of 1.8. Normal renal function. Troponin was negative. BNP was less than 20. Chest x-ray did not show any acute pathology. UA was negative. U tox was negative. Atrial fibrillation with RVR mostly secondary to the elevated abnormalities with hypokalemia as well as hypomagnesemia in the setting of hydrochlorothiazide 50 mg once daily dose along with possibly limited oral intake. No evidence of any infection at the present point of time. No evidence of any acute ACS. Converted to normal sinus rhythm after potassium magnesium supplementation along with 35 mg of IV diltiazem and multiple doses and also diltiazem drip for at least 2 hours at 5 mg per hour. Recommend to start the patient on metoprolol XL 50 mg once daily and stop the Coreg completely. Chest Vascor is elevated and start the patient on Eliquis 5 mg twice daily if no other contraindications for anticoagulation. Patient is on Coreg, hydrochlorothiazide as well as lisinopril 10 mg for blood pressure control at home. Hold off on the lisinopril as well as Coreg at the present point of time. Continue this metoprolol and decrease hydrochlorothiazide 20 mg once daily at the time of discharge and if blood pressure improves then can be started on lisinopril also. Chronic active smoker of counseled for stopping smoking and start the patient on nicotine patches. Severe morbid obesity with BMI greater than 40 and recommended to lose weight and exercise regularly. Unsure if patient has obstructive sleep apnea and will need to be tested as outpatient to have appropriate control of the A-fib with along with weight loss. Echocardiogram ordered and is pending. Management of rest of the medical conditions as per primary team and other consultants. Thank you for the consult and allowing me to participate in the care of the patient. Cardiology will continue to follow. Luke Saldaña M.D. Interventional Cardiology
[2025-08-22] MEDS: ATORVASTATIN CALCIUM 20 MG TABLET 80 MG PO (20:04)
[2025-08-23] VITALS (7 sets, daily range): BP systolic 94–128; BP diastolic 58–67; PULSE 55–87; RESP 10–99; TEMP 36.1–37.7; O2SAT 94–98; BMI 43.0
[2025-08-23 05:35] LABS: Basophils # (Auto) 0.0 Thou/mm3 (0.0-0.2); Basophils % (Auto) 1 % (0-2.5); Eosinophils # (Auto) 0.3 Thou/mm3 (0.0-0.5); Eosinophils % (Auto) 6 % (0-10); Hematocrit 39.4 % (36.0-46.0); Hemoglobin 12.7 g/dL (12.0-16.0); Immature Granulocytes Auto 0.01 Thou/mm3 (0.00-0.00); Lymphocytes # (Auto) 1.5 Thou/mm3 (1.0-4.8); Lymphocytes % (Auto) 28 % (10-50); Mean Corpuscular HGB Conc 32.2 g/dl (31.0-37.0); Mean Corpuscular Hemoglobin 29.6 pg (25.0-35.0); Mean Corpuscular Volume 92 fL (80-100); Monocytes # (Auto) 0.4 Thou/mm3 (0.0-0.8); Monocytes % (Auto) 7 % (0-12); Neutrophils # (Auto) 3.1 Thou/mm3 (1.8-7.7); Neutrophils % (Auto) 59 % (37-80); Nucleated Red Blood Cell # 0.00 Thou/mm3 (0.00-0.00); Nucleated Red Blood Cell % 0 /100 WBC (0); Platelet Count 182 Thou/mm3 (140-440); RDW Standard Deviation 59.0 fL (36.4-46.3); Red Blood Count 4.29 Miln/mm3 (4.00-5.20); White Blood Count 5.3 Thou/mm3 (3.6-11.0)
[2025-08-23 05:58] LABS: Glucose Estimated Average 131 mg/dL (80-131); Hemoglobin A1C 6.2 % Hgb (4.8-6.0)
[2025-08-23 06:12] LABS: Alanine Aminotransferase 9 U/L (10-49); Albumin, Serum 3.9 gm/dL (3.5-5.0); Albumin/Globulin Ratio 2.1 (1.2-2.2); Alkaline Phosphatase 92 U/L (46-116); Anion Gap 7 (7-16); Aspartate Amino Transferase 13 U/L (0-34); BUN/Creatinine Ratio 9 Ratio (12-20); Bilirubin,Total 0.5 mg/dL (0.3-1.2); Blood Urea Nitrogen 8 mg/dL (9-23); Calcium 8.7 mg/dL (8.3-10.6); Calcium (Corrected) 8.8 mg/dL (8.5-10.1); Carbon Dioxide 26.1 mMol/L (20.0-31.0); Cardiac Risk Estimate 4.2 RATIO (3.7-5.6); Chloride 111 mMol/L (98-107); Cholesterol 127 mg/dL (132-200); Creatinine (Component) 0.9 mg/dL (0.6-1.3); Estimated Creatinine Clearance 99.9 mL/min (>60); Globulin 1.9 gm/dL (2.3-3.5); Glucose 119 mg/dL (74-106); HDL Cholesterol 30 mg/dL (40-60); LDL Cholesterol,Calculated 77 mg/dL (0-130); Magnesium 2.0 mg/dL (1.6-2.6); Osmolality,Calculated 286 (275-295); Phosphorous 4.0 mg/dL (2.4-5.1); Potassium 4.0 mMol/L (3.4-5.1); Sodium 144 mMol/L (136-145); Thyroid Stimulating Hormone 1.82 uIU/mL (0.55-4.78); Total Protein 5.8 gm/dL (5.7-8.2); Triglycerides 102 mg/dL (30-150); eGFR > 60 See Note
--- NOTE | 2025-08-23 08:32 | PC.NURSE ---
Called Dr Munguia to notify of blood pressures for this am, Per hold lisinopril and HCTZ this am
[2025-08-23] MEDS: ASPIRIN 81 MG CHEW PO (08:38)
[2025-08-23] MEDS: METOPROLOL SUCCINATE XL 25 MG TABCR 50 MG PO (08:39)
[2025-08-23] MEDS: PANTOPRAZOLE 40 MG TABLET PO (08:39)
[2025-08-23] MEDS: APIXABAN 2.5 MG TABLET 5 MG PO (08:39)
--- NOTE | 2025-08-23 08:47 | ESPR_ITS ---
Documentation for date of: 08/23/25 Subjective Subjective Interval history: Patient was seen at bedside today. she is doing well today. she denies any chest pain,fluttering sensations,SOB,orthopnea,diziness.Her BP is running soft ranging from 90-100s/50-60s.Her court monitor showing Normal Sinus rhythm with HR around 60-70s.Her A1c is 6.2,TSH-1.82,TG 102,Chol :127,LDL 77,HDL 30. Only metoprolol is being continued for the heart rate control. Lisinopril and HCTZ but stopped because of the hypotension can be started as outpatient at lower doses. Keep potassium greater than 4 magnesium greater than 2.0 at all times. Echo from 08/13/2025 showed Left ventricle size is normal and systolic function is normal. Estimated ejection fraction is 55-60%. There is indeterminate diastolic function. Right ventricle chamber size is normal and systolic function is normal. Estimated RVSP is 38 mmHg. Mild HTN. Mild MR and mild TR. IVC not well visualized and no pericardial effusion. Patient did not have any chest pain but has multiple risk factors for CAD as noted above and troponins were negative during this admission recommended patient to follow-up with her primary java portal developer to continue further ischemic workup as outpatient No overnight complaints. Exam Vital Signs Temp Pulse Resp BP Pulse Ox O2 Del Method 96.9 F 68 15 104/62 94 L Room Air 08/23/25 08:00 08/23/25 08:39 08/23/25 08:00 08/23/25 08:39 08/23/25 08:00 08/23/25 08:00 Objective Labs 08/23/25 04:02 08/23/25 04:02 Labs: Laboratory Results - last 24 hr 08/23/25 04:02 WBC 5.3 RBC 4.29 Hgb 12.7 D Hct 39.4 MCV 92 MCH 29.6 MCHC 32.2 RDW Std Deviation 59.0 H Plt Count 182 D Neut % (Auto) 59 Lymph % (Auto) 28 [place] % (Auto) 7 Eos % (Auto) 6 Baso % (Auto) 1 Neut # (Auto) 3.1 Lymph # (Auto) 1.5 [place] # (Auto) 0.4 Eos # (Auto) 0.3 Baso # (Auto) 0.0 Immature Gran # (Auto) 0.01 H Absolute Nucleated RBC 0.00 Immature Gran % 0 Nucleated RBC % 0 Sodium 144 Potassium 4.0 D Chloride 111 H Carbon Dioxide 26.1 Anion Gap 7 BUN 8 L Creatinine 0.9 Estim Creat Clear Calc 99.9 eGFR > 60 BUN/Creatinine Ratio 9 L Glucose [address] Glu mg/dL 131 Hemoglobin A1c 6.2 H Calculated Osmolality 286 Calcium 8.7 Corrected Calcium 8.8 Phosphorus 4.0 Magnesium 2.0 Total Bilirubin 0.5 AST 13 ALT 9 L Alkaline Phosphatase 92 Total Protein 5.8 Albumin 3.9 D Globulin 1.9 L Albumin/Globulin Ratio 2.1 Triglycerides 102 Cholesterol 127 L LDL Cholesterol, Calc 77 HDL Cholesterol 30 L Cholesterol/HDL Ratio 4.2 TSH 1.82 Quality Measures Quality Measures VTE prophylaxis Assessment & Plan Assessment Current Active Medications: Generic Name Dose Route Start Last Admin Trade Name Freq PRN Reason Stop Dose Admin Acetaminophen 650 mg 08/22/25 12:23 Acetaminophen 325 Mg Tablet PO 09/21/25 12:22 Q6H PRN Fever >100.4 or pain 1-6 Apixaban 5 mg 08/22/25 13:45 08/23/25 08:39 Apixaban 2.5 Mg Tablet PO 09/21/25 13:44 5 mg BID BLESSING Administration Aspirin 81 mg 08/22/25 12:30 08/23/25 08:38 Aspirin 81 Mg Chew PO 09/21/25 12:29 81 mg DAILY BLESSING Administration Atorvastatin Calcium 80 mg 08/22/25 21:00 08/22/25 20:04 Atorvastatin Calcium 20 Mg Tablet PO 09/21/25 20:59 80 mg HS BLESSING Administration Dextrose 25 ml 08/22/25 14:13 Dextrose 50%-Water Inj 50 Ml Syringe IV 09/21/25 14:12 Q15MIN PRN BG 50-70 responsive npo pt Dextrose 50 ml 08/22/25 14:13 Dextrose 50%-Water Inj 50 Ml Syringe IV 09/21/25 14:12 Q15MIN PRN BG <50 OR BG <70 & pt unresponsive Glucagon 1 mg 08/22/25 14:13 Glucagon Inj 1 Mg Vial IM Q15MIN PRN BG <70, and no IV access Hydrochlorothiazide 25 mg 08/23/25 09:00 Hydrochlorothiazide 12.5 Mg Capsule PO 09/22/25 08:59 DAILY [facility] Insulin Human Lispro 0 unit 08/22/25 17:00 08/23/25 07:35 Insulin Lispro (Admelog) 1 Unit/0.01 Ml Unit SC 09/21/25 16:59 Not Given AC [facility] Protocol Lisinopril 10 mg 08/22/25 12:30 08/22/25 12:48 Lisinopril 2.5 Mg Tablet PO 09/21/25 12:29 Not Given QAM BLESS[facility] Metoprolol Succinate 50 mg 08/23/25 09:00 08/23/25 08:39 Metoprolol Succinate Xl 25 Mg Tabcr PO 09/22/25 08:59 50 mg QDAY [facility] Administration Nicotine 7 mg 08/22/25 13:45 08/22/25 14:49 Nicotine Patch 7 Mg/24 Hr Patch.Td24 TOP 09/21/25 13:44 Not Given QDAY [facility] Ondansetron HCl 4 mg 08/22/25 12:23 Ondansetron Inj 2 Mg/Ml Inj 2 Ml IVP 09/21/25 12:22 Q6H PRN NAUSEA OR VOMITING Protocol Pantoprazole Sodium 40 mg 08/23/25 09:00 08/23/25 08:39 Pantoprazole 40 Mg Tablet PO 09/22/25 08:59 40 mg QDAY [facility] Administration Plan Pamella is a 55-year-old female with past medical history of hyperlipidemia, hypertension, diabetes mellitus, osteoarthritis of hip, spinal stenosis of lower lumbar area and neck, CAD maker [place] status post 3 stents in March 2022 at [facility] by Dr. Louie?4 times resuscitation during the stent surgery presented to the ED with heart racing and pounding sensations. She was admitted for atrial fibrillation with rapid ventricular response. # New onset Paroxysmal atrial fibrillation with rapid ventricular response Complaining of heart racing and pounding sensations starting 3:30 in the morning and relieved after diltiazem pill and drip.Now resolved Denies any chest pain, tightness, syncope. EKG showing A-fib with RVR heart rate around 160s, without any ST segment changes, troponin negative, BNP normal-not ischemic. EKG done after diltiazem drip and tele now shows normal sinus rhythm Management and plan: Discontinue carvedilol and starting on metoprolol XL 50 MG for optimal heart rate control and for her atrial fibrillation. Reducing her hydrochlorothiazide to 25 mg and monitor if any leg swelling develops. Can consider spironolactone if she develops any leg swelling. Goal potassium above 4 and magnesium about 2. Initial potassium is 3.4 and magnesium 1.8 ordered 40 mill equivalents of potassium and magnesium oxide 2g. ?Recommends comprehensive metabolic workup including cholesterol and TSH levels. ?Start on Eliquis 5 mg twice daily as there is no current intervention required from cardiology point of view. -Echo from 08/13/2025 showed Left ventricle size is normal and systolic function is normal. Estimated ejection fraction is 55-60%. There is indeterminate diastolic function. Right ventricle chamber size is normal and systolic function is normal. Estimated RVSP is 38 mmHg. Mild HTN. Mild MR and mild TR. IVC not well visualized and no pericardial effusion. - Patient did not have any chest pain but has multiple risk factors for CAD as noted above and troponins were negative during this admission recommended patient to follow-up with her primary java portal developer to continue further ischemic workup as outpatient # Active smoking ?Counseled on importance of smoking cessation in view of her extensive cardiac history and impact on cardiovascular health. Patient agreed to quit smoking. ?Start on nicotine patch # Hypertension. Usual blood pressure at home is around 140s. ?Starting on metoprolol XL 50 mg and decreasing dose of hydrochlorothiazide to 25 mg -Her BP is low today in the soft range . Holding Lisinopril and HCTZ in view of her low BP. Repeated BP readings of 120/72 (left arm) and 107/58 (right arm) -Can start on Lisinopril 2.5mg and HCTZ 12.5mg on outpatient basis. ?Continue to monitor her blood pressure. # Hyperlipidemia. Currently taking atorvastatin 80 mg. Need a comprehensive profile of cholesterol panel. # CAD status post 3 stents Currently taking aspirin and Plavix ?Continue the current regimen # Diabetes mellitus 2 # Osteoarthritis # Spinal stenosis ?Manage per primary team Discussed this case with Dr. Piper Kaufman MD PGY1 Attending Provider Attestation/Addendum I have personally seen and examined the patient separately on the above date of service and discussed the plan of care with the resident. I reviewed the resident Dr. Tyler Kaufman consultation progress note and agree with the resident findings and plan in the note above and have also edited the documentation to reflect my findings and plan. Luke Virk Anumandla M.D. Interventional Cardiology
--- NOTE | 2025-08-23 13:15 | PD.RESDS ---
Planned Discharge Date 08/23/25 DS: Providers Provider Date of admission: 08/22/25 12:28 Primary care physician: TOYA March Admitting Provider: Michael Munguia MD Attending Provider on Admission: Michael Munguia MD Consults: 08/22/25 11:06 Consult to Cardiology Stat Comment: Consulting Provider: Luke Saldaña Attending Provider on DC: Chalo Tobias MD Discharging Provider: Lj Conner MD DS: Diagnosis Problem List Completed Was Problem List Reviewed/Reconciled?: Yes Hospital Course Hospital Course Hospital course: Ms Lopez is a 55-year-old female with a history of CAD s/p widowmaker PR (2021, 3 stents), HTN, and DM2, who presented to the hospital with new-onset paroxysmal atrial fibrillation, initially noted at 3:30 AM, accompanied by mild lightheadedness. The arrhythmia spontaneously reverted to sinus rhythm after a few hours. Her course was uncomplicated, with stable vitals and no recurrence of arrhythmia. Initial concerns about low blood pressure (94/58) were resolved after rechecking, with BP readings of 120/72 (left arm) and 107/58 (right arm) confirming stability. The patient underwent an echocardiogram, which showed normal LV size and systolic function (EF 55-60%), mild mitral/tricuspid regurgitation, and mild pulmonary hypertension (RVSP 38 mmHg). Other labs were unremarkable, including troponin, BNP, and electrolytes. The patient remained asymptomatic with no further complaints. Cardiology consulted and cleared the patient for discharge home today, as she was stable and had no further cardiovascular complaints. Diagnosis during admission: #Paroxysmal Atrial Fibrillation (now in sinus rhythm) #Coronary Artery Disease s/p Widowmaker PR (2021, 3 stents) #Hypertension #Type 2 Diabetes Mellitus #Tobacco Use Disorder Discharge instructions: -Follow-up with PCP within 1 week of discharge. If you do not have appointment, please follow-up with the [facility] with Dr. Munguia. Call [phone] to make an appointment. -Recommended to Start Eliquis 5mg twice daily, metoprolol ER 50mg once daily -Recommended to stop Aspirin -Stop Lisinopril, Hydrochlorthiazide, carvedilol for now as the blood pressure is within normal limits during the hospital stay -Patient needed to be on atleast Lisinopril 2.5mg, Hydrochlorthiazide 12.5mg once daily which needed to be started on outpatient basis by PCP or procurement representative -Recommended to stop Smoking and get a sleep study for suspected Obstructive sleep apnea -Return to ED if symptoms persist or return ----- Plan discussed with attending physician Dr. Tobias and senior resident Dr. Nilda Conner MD PGY-1 Internal Medicine Time Spent with Patient Time attestation: Total time spent providing and/or coordinating discharge services: Time spent: Greater than 30 minutes Exam Vital Signs Temp Pulse Resp BP Pulse Ox O2 Del Method 97.2 F 68 10 L 128/67 95 Room Air 08/23/25 12:00 08/23/25 12:00 08/23/25 12:00 08/23/25 12:00 08/23/25 12:00 08/23/25 12:00 Narrative Exam General: Alert, oriented ?4, no acute distress. HEENT: PERRLA, mucous membranes moist. Neck: Supple, no JVD. Cardiac: Regular rate and rhythm, normal S1/S2, no murmurs. Lungs: Clear to auscultation bilaterally. Abdomen: Soft, non-tender, normoactive bowel sounds. Extremities: No edema. Neuro: No focal deficits. Skin: Warm, dry, intact. Discharge Plan Plan Patient Disposition: HOME (Self Care) Patient condition on transfer: Stable Care Plan Goals: -Follow-up with PCP within 1 week of discharge. If you do not have appointment, please follow-up with the [facility] with Dr. Munguia. Call [phone] to make an appointment. -Recommended to Start Eliquis 5mg twice daily, metoprolol ER 50mg once daily -Recommended to stop Aspirin -Stop Lisinopril, Hydrochlorthiazide, carvedilol for now as the blood pressure is within normal limits during the hospital stay -Patient needed to be on atleast Lisinopril 2.5mg, Hydrochlorthiazide 12.5mg once daily which needed to be started on outpatient basis by PCP or procurement representative -Recommended to stop Smoking and get a sleep study for suspected Obstructive sleep apnea -Return to ED if symptoms persist or return Prescriptions/Referrals Prescriptions/Med Rec: New Eliquis 5 mg tablet 5 mg PO BID Qty: 30 1RF metoprolol succinate 50 mg capsule,sprinkle,ER 24hr 50 mg PO QDAY Qty: 30 2RF clopidogrel [Plavix] 75 mg tablet 75 mg PO QDAY Qty: 30 2RF Continued Hydrocodone Bit/Acetaminophen ([place] 10-325 Tablet) 1 TAB tablet 1 tab PO [id number] PRN (Reason: PAIN) Qty: 0 diphenhydramine HCl [Benadryl Allergy] 25 MG tablet 25 mg PO [id number] PRN (Reason: ITCHING) Qty: 60 0RF cholecalciferol (vitamin D3) 125 mcg (5,000 unit) capsule 5,000 unit PO DAILY Patient Comments: TAKE 1 CAPSULE BY MOUTH DAILY Jardiance 10 mg tablet 10 mg PO QDAY atorvastatin 80 mg tablet 80 mg PO HS Patient Comments: TAKE 1 TABLET BY MOUTH AT BEDTIME omeprazole 20 mg tablet,delayed release (DR/EC) 20 mg PO DAILY Patient Comments: TAKE 1 TABLET BY MOUTH DAILY Discontinued lisinopril 10 MG tablet 10 mg PO QAM Qty: 0 carvedilol 6.25 mg tablet 6.25 mg PO .DAILY clopidogrel 75 mg tablet 75 mg PO DAILY hydrochlorothiazide 50 mg tablet 50 mg PO DAILY Patient Comments: TAKE 1 TABLET BY MOUTH EVERY DAY IN THE MORNING aspirin 81 mg tablet,chewable 1 tab PO DAILY Patient Comments: CHEW AND SWALLOW 1 TABLET BY MOUTH 1 TIME A DAY Referrals: Phillip Gonzalez FNP [Primary Care Provider] Patient/Caregiver Discharge Instructions Education Materials: AFL/Afib, Discharge Instructions for ..., Heart Disease Women Print Language: Serbian Stand Alone Forms: Kimberlyn Award Info., Patient Portal Info Letter Discharge Order Discharge Orders: Discharge (Routine); Ordered 08/23/25 Ordered By: Chalo Tobias Quality Discharge Quality Measures VTE prophylaxis Attestestation Attestation I have examined the patient, reviewed labs and imaging findings, discussed the case with the resident(s), and reviewed entered orders. I agree with the plan of care as outlined in this note. Time Spent: [address] Micheline MD
== END 2025-08-23 12:55 | disposition home or self-care (01) ==
LOC: SERX 11:30 → S2NX 08-23 05:41 → SERHOLD 08-24 06:29 → S2NX 08-24 06:30
PROVIDERS: Emergency Medicine; Admitting Provider Student in an Organized Health Care Education/Training Program; Emergency Provider Emergency Medicine
DX: I48.0 Paroxysmal atrial fibrillation (principal); I25.10 Atherosclerotic heart disease of native coronary artery without angina pectoris; I25.2 Old myocardial infarction; E11.9 Type 2 diabetes mellitus without complications; I10 Essential (primary) hypertension; I27.20 Pulmonary hypertension, unspecified; I07.1 Rheumatic tricuspid insufficiency; E78.5 Hyperlipidemia, unspecified; Z95.5 Presence of coronary angioplasty implant and graft; M48.00 Spinal stenosis, site unspecified; E66.01 Morbid (severe) obesity due to excess calories; E83.42 Hypomagnesemia; E87.6 Hypokalemia
CPT/HCPCS: 36415; 71045; 80053; 80061; 80307; 81001; 83036; 83615; 83735; 83880; 84100; 84443; 84484; 85025; 85610; 85730; 93005; 93306; 96361; 96365; 96366; 96375; 96376; 99284; G0378; J3475; J3490; J7030; A9270; J1920